=== PATIENT | female | born 1970 | race Caucasian/White ===

== ENCOUNTER 2022-07-14 08:03 | Outpatient (CLI) | payer BC ==
[2022-07-14] MEDS ORDERED: Iopamidol 370 76% 100 ML VIAL ONE (10:27)
== END 2022-07-14 08:04 | disposition home or self-care (01) ==
LOC: CT 08:03
PROVIDERS: ATTEND Obstetrics & Gynecology Gynecologic Oncology
DX: C57.02 Malignant neoplasm of left fallopian tube (principal); N28.89 Other specified disorders of kidney and ureter
CPT/HCPCS: 71260; 74177; Q9967

== ENCOUNTER 2022-08-05 08:46 | Day surgery (SDC) | payer BC ==
[2022-08-04 11:05] VITALS: BMI 30.9
[2022-08-05] MEDS ORDERED: CEFAZOLIN 2 GM VIAL ONE (09:55)
[2022-08-05] MEDS ORDERED: Acetaminophen 500 MG TAB ONE (09:55)
[2022-08-05] MEDS ORDERED: Sodium Chloride 0.9% 100 ML ONE (09:55)
[2022-08-05] MEDS ORDERED: Ketorolac Tromethamine 30 MG/ML VIAL ONE (09:55)
[2022-08-05] MEDS ORDERED: Bupivacaine/Epinephrine 0.25% 30 ML VIAL ONE (11:39)
[2022-08-05] MEDS ORDERED: Lidocaine 1% (PF) 30 ML VIAL ONE (11:39)
[2022-08-05] MEDS ORDERED: Heparin 5,000 UNITS/ML VIAL ONE (11:39)
[2022-08-05] MEDS ORDERED: Heparin 10,000 UNITS/ 10 ML VIAL ONE (11:40)
[2022-08-05] MEDS ORDERED: Midazolam HCl 2 mg/2 ml Vial ONE (11:46)
[2022-08-05] MEDS ORDERED: fentaNYL PF 100 MCG/2 ML SYRINGE ONE ×2 (11:46→12:47)
[2022-08-05] MEDS ORDERED: Ondansetron PF 4 MG/2 ML Vial ONE (12:02)
[2022-08-05] MEDS ORDERED: Lidocaine 1% PF 5 ML VIAL ONE (12:02)
[2022-08-05] MEDS ORDERED: Metoprolol Tartrate 5 MG/5 ML VIAL ONE (12:02)
[2022-08-05] MEDS ORDERED: PROPOFOL 200 MG/20 ML VIAL ONE (12:02)
[2022-08-05] MEDS ORDERED: PHENYLEPHRINE-NS 100 MCG/ML 10 ML SYRINGE ONE (12:02)
== END 2022-08-05 13:19 | disposition home or self-care (01) ==
LOC: SDC 08:46
PROVIDERS: ATTEND Specialist
PROC: 0JH60WZ Insertion of Totally Implantable Vascular Access Device into Chest Subcutaneous Tissue and Fascia, Open Approach (ICD-10-PCS; principal; 2022-08-05)
PROC: B518ZZA Fluoroscopy of Superior Vena Cava, Guidance (ICD-10-PCS; principal; 2022-08-05)
PROC: 02HV33Z Insertion of Infusion Device into Superior Vena Cava, Percutaneous Approach (ICD-10-PCS; principal; 2022-08-05)
DX: C56.9 Malignant neoplasm of unspecified ovary (principal); I10 Essential (primary) hypertension; Z15.01 Genetic susceptibility to malignant neoplasm of breast; Z79.899 Other long term (current) drug therapy; Z88.1 Allergy status to other antibiotic agents; Z91.048 Other nonmedicinal substance allergy status; Z90.710 Acquired absence of both cervix and uterus; Z90.722 Acquired absence of ovaries, bilateral
CPT/HCPCS: 71045; C1788; J1642; J1644; J1885; J2001; J2250; J2405; J2704; J3490

== ENCOUNTER 2022-09-05 09:32 | Outpatient (CLI) | payer BC | END 2022-09-05 09:33 | disposition home or self-care (01) | LOC: BICMRI 09:32 | PROVIDERS: ATTEND Surgery | DX: Z15.01 Genetic susceptibility to malignant neoplasm of breast (principal) | CPT/HCPCS: 82565; A9577; C8908 ==

== ENCOUNTER 2022-09-08 10:04 | Emergency (ER) | payer BC ==
[2022-09-08 10:43] LABS: Hemoglobin 13.3 g/dL (12.0-16.0); Mean Corpuscular HGB CONC 34.8 g/dL (32.0-36.0); Mean Corpuscular Hemoglobin 30.3 pg (27.0-31.0); Mean Platelet Volume 7.6 fL (7.4-10.4); Platelet Count 167 10x3/uL (130-400); RBC Distribution Width 13.7 % (11.5-14.5); Red Blood Cell (RBC) Count 4.39 mill/uL (4.20-5.40); White Blood Cell (WBC) Count 7.7 10x3/uL (4.8-10.8)
[2022-09-08 11:01] LABS: Lymphocytes 25 % (21-51); MDiff Complete? YES; Monocytes 1 % (0-10); Neutrophil 74 % (42-75); Platelet Morphology Comment Appears Adequate; RBC Morphology 1; Toxic Granulation SLIGHT; Vacuoles SLIGHT
[2022-09-08 11:05] LABS: ALT (SGPT) 64 U/L (8-55); AST (SGOT) 25 U/L (5-34); Albumin 4.5 g/dL (3.5-5.0); Alkaline Phosphatase 90 U/L (40-110); Anion Gap 15 mmol/L (10-20); BUN (Urea Nitrogen) 24 mg/dL (9.8-20.1); Bilirubin, Total 0.5 mg/dL (0.2-1.2); Calc. Creatinine Clearance 0 mL/min (70-130); Calcium 9.1 mg/dL (7.8-10.44); Carbon Dioxide 26 mmol/L (22-29); Chloride 97 mmol/L (98-107); Estimated GFR 76; Globulin 2.6 g/dL (2.4-3.5); Glucose 86 mg/dL (70-105); Potassium 3.7 mmol/L (3.5-5.1); Protein, Total 7.1 g/dL (6.0-8.3); Sodium 134 mmol/L (136-145)
[2022-09-08] MEDS ORDERED: Iopamidol 370 76% 100 ML VIAL ONE (11:12)
== END 2022-09-08 15:32 | disposition home or self-care (01) ==
LOC: ERS 10:04
DX: R07.89 Other chest pain (principal); R16.0 Hepatomegaly, not elsewhere classified; I10 Essential (primary) hypertension; Z79.899 Other long term (current) drug therapy
CPT/HCPCS: 36415; 71045; 71275; 80053; 84484; 85025; 93005; Q9967

== ENCOUNTER 2022-10-01 09:31 | Outpatient (CLI) | payer BC | END 2022-10-01 09:32 | disposition home or self-care (01) | LOC: SCSMRI 09:31 | PROVIDERS: ATTEND Internal Medicine Hematology & Oncology | DX: C56.9 Malignant neoplasm of unspecified ovary (principal); Z14.8 Genetic carrier of other disease; K76.89 Other specified diseases of liver; K76.0 Fatty (change of) liver, not elsewhere classified | CPT/HCPCS: 74183; 82565 ==

== ENCOUNTER 2023-01-21 09:38 | Outpatient (CLI) | payer BC | END 2023-01-21 09:39 | disposition home or self-care (01) | LOC: BICCT 09:38 | PROVIDERS: ATTEND Internal Medicine Hematology & Oncology | DX: C56.9 Malignant neoplasm of unspecified ovary (principal); C57.02 Malignant neoplasm of left fallopian tube | CPT/HCPCS: 74177; 82565 ==

== ENCOUNTER 2023-07-29 14:56 | Outpatient (CLI) | payer BC | END 2023-07-29 14:57 | disposition home or self-care (01) | LOC: BICMAMMO 14:56 | PROVIDERS: ATTEND Surgery | DX: Z12.31 Encounter for screening mammogram for malignant neoplasm of breast (principal); Z80.3 Family history of malignant neoplasm of breast; Z85.43 Personal history of malignant neoplasm of ovary | CPT/HCPCS: 77063; 77067 ==

== ENCOUNTER 2024-05-31 13:32 | Outpatient (CLI) | payer BC | END 2024-05-31 13:33 | disposition home or self-care (01) | LOC: BICMRI 13:32 | PROVIDERS: ATTEND Surgery | DX: Z15.01 Genetic susceptibility to malignant neoplasm of breast (principal) | CPT/HCPCS: 82565; A9577; C8908 ==